=== PATIENT | female | born 2000 | race Caucasian/White ===

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

== ENCOUNTER 2022-05-07 21:30 | Emergency (ER) | payer MEDICAID, SELFPAY ==
[2022-05-07 21:51] VITALS: BP 119/75; PULSE 102; RESP 18; TEMP 36.8; O2SAT 97
--- NOTE | 2022-05-07 22:00 | RT.EKG_ITS ---
APPROVED REPORT Exam: Resting ECG Reason for Exam: rib pain Patient Location: E HR:84 bpm ECG Measurements Heart Rate 84 AXIS OH 108 P 50 QRSd 87 QRS 61 QT 348 T -14 QTc 412 Conclusion Sinus rhythm...normal P axis, V-rate 60- 99 sinus rhythm, normal axis, t wave inversions III avF
--- NOTE | 2022-05-07 22:15 | DI.RAD_ITS ---
Exam(s) XR CHEST 1V IN DI DEPT EXAM: XR CHEST 1V IN DI DEPT CLINICAL HISTORY: lower rib pain bilaterally TECHNIQUE: 2D digital imaging was performed of the chest. One image was obtained. An AP view was ob tained. COMPARISON: CT CT CHEST PE CTA from 06/20/2021 FINDINGS: MEDIASTINUM: Normal. HEART: Normal. PULMONARY VASCULATURE: Normal. LUNGS: Clear. PLEURAL SPACE: No pleural effusion or pneumothorax. BONE:Within normal limits for the patient's age. OTHER FINDINGS:Normal. IMPRESSION: No acute pulmonary findings. DATA REPOSITORY: RADIATION DOSE DELIVERED:
--- NOTE | 2022-05-07 22:28 | ED.GENADUL_ITS ---
Discharge Plan Disposition Patient Disposition: HOME Condition: Improving Discharge Details Chief Complaint: Chest/Rib Clinical Impression: Chest pain Primary Care Provider: Dwight Marie ED Provider: Anupam Lord Home Meds and New Rx's Prescriptions: No Action acetaminophen 500 mg Tablet 1,000 mg PO QID PRN Discharge Instructions Instructions: Chest Pain (ED) Additional Instructions: Please follow-up with your primary care physician. Please return to the emergency department for any worsening symptoms. Medical Decision Making 21-year-old female presents with bilateral lower rib discomfort over the past several hours, in the setting of wearing a breast binder all day today, pain is worse with movement and palpation, no respiratory distress lungs clear bilaterally afebrile nontoxic, EKG normal sinus rhythm does have T wave inversion lead III and aVF. No history of cardiac or thromboembolic disease. Likely chest wall irritation from breast binder versus costochondritis versus pleurisy versus less likely pneumothorax PE or ACS given history and physical will obtain screening x-ray screening EKG Will provide analgesia and anti- inflammatory in the form of Toradol; likely home with close follow-up pending reassessment and results 23: 33 patient feeling better after Toradol. X-ray unremarkable EKG nonischemic. Likely musculoskeletal chest wall discomfort. Counseled to trial limiting chest binder over the next 2 days to see if this helps. Given strict return precautions for worsening symptoms HPI General Date/Time Provider Initiated Documentation: 05/07/22 22:00 . HPI Narrative: 21-year-old female presents with bilateral lower rib discomfort over the past several hours worse with movement and palpation has had similar events over the past several months. Of note patient had COVID several months ago that required hospitalization. Denies history of heart disease or thromboembolic phenomenon. Does not take any exogenous estrogen. Of note patient was wearing a breast binder all day today. Related Data Home Medications Medication Instructions Recorded Confirmed acetaminophen 500 mg tablet 1,000 mg PO QID PRN 11/12/21 05/07/22 Allergies Allergy/AdvReac Type Severity Reaction Status Date / Time Opioids - Morphine Analogues Allergy Unknown Verified 05/07/22 21:57 General Stated Complaint: Chest/Rib KI: 3 Review of Systems Narrative: Review of Systems Constitutional: negative Eyes: negative ENT: negative Cardiovascular: negative Respiratory: negative Gastrointestinal: negative : negative Musculoskeletal: Rib discomfort Skin: negative Neurologic: negative Psych: negative PFSH All Active Problems (Updated 05/07/22 @ 23:34 by Anupam Lord MD) (Acute) Chest pain (Acute) Pyelonephritis (Acute) Sepsis (Acute) Family History Mother Mental disorder Depression and Anxiety several years ago. Asthma Father No problems noted. Social History Smoking/Tobacco Use Status: Never Smoking risk assessment performed?: Yes Alcohol Intake: never Drug use: Occasionally Substance use type: marijuana Do you feel safe at home: Yes Do you feel safe in your relationship?: Yes Exam Narrative Exam Narrative: Physical Examination General: alert, awake, cooperative, resting comfortably, no acute distress HEENT: normocephalic, atraumatic; PERRL, EOM intact, conjunctiva normal; no nasal discharge; moist mucous membranes, oral and pharyngeal mucosa normal, tolerating secretions Neck: supple, trachea midline; full ROM Chest: normal to inspection Respiratory: normal respiratory effort, speaking in full sentences, clear to auscultation, no wheezing, rales or rhonchi Cardiac: regular rate, regular rhythm, S1S2 intact, no murmurs rubs or gallops GI: abdomen soft, non-tender, non-distended; no palpable mass or hepatosplenomegaly Skin: no lesions, rashes or trauma appreciated Neuro: AAOx3, normal speech, moving all extremities Psych: Appropriate mood and affect Course Vital Signs Vital signs: Vital Signs Temperature 36.8 C 05/07/22 21:51 Pulse 102 H 05/07/22 21:51 Respiratory Rate 18 05/07/22 21:51 Blood Pressure 119/75 05/07/22 21:51 Pulse Oximetry 97 05/07/22 21:51 Temperature 36.8 C 05/07/22 21:51 Temperature Source Oral 05/07/22 21:51 Pulse 102 H 05/07/22 21:51 Respiratory Rate 18 05/07/22 21:51 Respiratory Effort 05/07/22 21:55 Respiratory Depth Normal 05/07/22 21:55 Respiratory Pattern Normal 05/07/22 21:55 Blood Pressure 119/75 05/07/22 21:51 Blood Pressure Position Sitting 05/07/22 21:51 Pulse Oximetry 97 05/07/22 21:51 Oxygen Delivery Method Room Air 05/07/22 21:51 Oxygen Flow Rate 0 05/07/22 21:51 Pain Level 5 05/07/22 21:55 Comment 05/07/22 21:51
[2022-05-07] MEDS: Ketorolac 15 MG/ML VIAL IM (23:00)
--- NOTE | 2022-05-08 00:11 | DI.VRAD_ITS ---
PROCEDURE INFORMATION: Exam: XR Chest Exam date and time: 05/07/2022 10:43 PM Age: 21 years old Clinical indication: Other: Bilat lower rib pain TECHNIQUE: Imaging protocol: Radiologic exam of the chest. Views: 1 view. COMPARISON: CT CHEST PE CTA 06/20/2021 9:28 PM FINDINGS: Lungs: Lungs are adequately inflated and symmetric. No focal consolidation or pulmonary edema. Pleural spaces: No visible pleural effusion. No pneumothorax. Heart/Mediastinum: Cardiomediastinal contours within normal limits. Bones/joints: No discrete or displaced fracture. IMPRESSION: No acute findings. Dictated and Authenticated by: Zack Schroeder MD. Ordering:DRANELL Bo MD
== END 2022-05-07 23:38 | disposition home or self-care (01) ==
PROVIDERS: Emergency Provider Emergency Medicine; PCP Nurse Practitioner Pediatrics
DX: R07.81 Pleurodynia (principal)
CPT/HCPCS: 93005; 96372; 99284; 71045; 93010; J1885